=== PATIENT | female | born 1975 | race Caucasian/White ===

== ENCOUNTER 2017-06-03 09:36 | Emergency (ER) | payer BC ==
[2017-06-03] MEDS ORDERED: methylPREDNISolone 125 MG* 2 ML VIAL IV ONE (12:34)
[2017-06-03] MEDS ORDERED: Ketorolac INJ* 30 MG/ML 1 ML VIAL IV PUSH PRN (12:34)
[2017-06-03] MEDS ORDERED: Diazepam SYRINGE* 5 MG/ML 2 ML SYRINGE (10 MG total) IV ONE ×2 (12:34→15:18)
[2017-06-03] MEDS ORDERED: Ketorolac INJ* 30 MG/ML 1 ML VIAL IV PUSH ONE (12:39)
[2017-06-03 13:35] LABS: ABS Basophils 0 10^3/ul (0-0.2); ABS Eosinophils 0 10^3/ul (0-0.6); ABS Lymphocytes 1.2 10^3/ul (1.0-4.8); ABS Monocytes 0.3 10^3/ul (0-0.8); ABS Neutrophils 6.1 10^3/ul (1.5-7.7); ABS Nucleated RBC 0 10^3/ul; Eosinophil % 0 % (0-6); Hematocrit 43 % (35-47); Hemoglobin 14.8 g/dl (12.0-16.0); Lymphocyte % 15.7 % (25-47); Mean Corpuscular HGB Conc 35 g/dl (31-36); Mean Corpuscular Hemoglobin 30 pg (27-31); Mean Corpuscular Volume 86 fL (80-97); Mean Platelet Volume 9 um3 (7.4-10.4); Nucleated Red Blood Cells % 0.2; Platelet Count 251 10^3/ul (150-450); Red Blood Count 4.98 10^6/ul (4.0-5.4); Red Cell Distribution Width 14 % (10.5-15); White Blood Count 7.5 10^3/ul (3.5-10.8)
[2017-06-03 13:50] LABS: EGFR Non-African American 99.2 (>60)
--- NOTE | 2017-06-03 13:59 | RAD ---
HISTORY: Right-sided radicular pain COMPARISONS: MRI dated August 26, 2008 TECHNIQUE: Multiple contiguous axial CT scans were obtained of the lumbar spine without intravenous contrast, with coronal and sagittal multiplanar reformations. FINDINGS: SPINAL CANAL: Evaluation of the central canal is limited on CT technique; however, there is no obvious canalicular mass or epidural hemorrhage. ALIGNMENT: The alignment is normal. VERTEBRAL BODIES: There are sclerotic reactive endplate changes with anterolateral marginal osteophyte formation at L5-S1 JOINTS: There is facet osteoarthritis along the lower lumbar spine MUSCULATURE: Unremarkable INTERVERTEBRAL DISCS: There is diffuse loss of intervertebral disc height throughout the spine, most pronounced at L5-S1. AXIAL IMAGES: T12-L1: There is no osseous neural foraminal narrowing or central canal stenosis. L1-L2: There is no osseous neural foraminal narrowing or central canal stenosis. L2-L3: There is no osseous neural foraminal narrowing or central canal stenosis. L3-L4: There is bilateral facet hypertrophy. There is a mild disc bulge. There is no osseous neural foraminal area or central canal stenosis. L4-L5: There is a broad-based disc bulge. There is bilateral facet hypertrophy. There is mild bilateral neural foraminal narrowing. There is mild narrowing of the central canal. L5-S1: There is bilateral facet hypertrophy with marginal osteophyte formation at the neural foramina bilaterally. There is moderate bilateral neural foraminal narrowing. There is no significant osseous central canal stenosis. SOFT TISSUES: The visualized soft tissues of the abdomen are unremarkable. OTHER: None IMPRESSION: DEGENERATIVE DISC DISEASE AND OSTEOARTHRITIS MOST PRONOUNCED AT L3-L4, L4-L5, AND L5-S1. THERE IS MULTILEVEL NEURAL FORAMINAL NARROWING DESCRIBED ABOVE. THERE IS NO OSSEOUS CENTRAL CANAL STENOSIS.
[2017-06-03] MEDS ORDERED: Diazepam INJ (NF) 5 MG/ML 10 ML VIAL (50 MG TOTAL) IV ONE ×2 (14:00→15:45)
--- NOTE | 2017-06-03 14:16 | RAD ---
INDICATION: Atraumatic right hip pain. Remote history of labral tear. COMPARISON: CT lumbar spine same date TECHNIQUE: Noncontrast axial scans the pelvis were obtained with coronal and sagittal reconstructions FINDINGS: There are no acute abnormalities of the bony pelvis. Both hips articulate normally. The proximal femurs appear normal bilaterally. The SI joints and symphysis are intact. There is degenerative change at L5-S1 as described in separate report. The intraperitoneal soft tissue structures of the pelvis appear normal. The uterus appears normal. The bladder appears normal. The visualized bowel is unremarkable. There is a small amount of free fluid in the dependent portion of the pelvis. The extraperitoneal/superficial soft tissues of the visualized pelvis are normal. IMPRESSION: SMALL AMOUNT OF FREE FLUID. THIS MAY REPRESENT PHYSIOLOGIC FREE FLUID.
[2017-06-03] MEDS ORDERED: oxyCODONE/Acetamin 5/325 MG* TAB PO ONE ×4 (15:18→15:57)
--- NOTE | 2017-06-03 15:25 | ED ---
Back Pain - HPI Summary HPI Summary: Patient presents with acute right thigh burning radiating down into lateral calf and decreased sensation of toes on Rt foot. She admits to a history of rotated pelvis and degenerative disc disease which she's been managing with a chiropractor since her 20's. She admits to wearing stilt-like shoes which threw her back off a few weeks ago but has been working with her chiropractor and seemed to be getting better. Since then she admits to wearing small heel shoes the other day which may have also thrown her back off. This pain however in her Rt right thigh is new in that it's radiating down her leg. She reports she has pain in her buttock area where her hamstring inserts. She denies saddle paresthesia, incontinence of bowels or bladder. Simply has a lot of pain and reports she has a very good pain tolerance. She typically takes fish oil and magnesium daily. Takes ibuprofen occasionally but not routinely. Denies previous history of back, hip, or lower extremity surgeries however she had a bone graft taken from her left hip to repair a fractured scaphoid in her left wrist 5 years ago. This area of her hip remains to be sore from scar tissue but is not causing any additional issues with her back or hips. She has declined seeing neurosurgery in the past 10 years and requests most noninvasive approach as possible however she is open to taking any medications that may help her pain today as she is quite uncomfortable - worse w/ hip/leg movements, weight bearing. - History of Current Complaint Chief Complaint: EDExtremityLower Stated Complaint: BACK & RT LEG PAIN Time Seen by Provider: 06/03/17 11:50 Hx Obtained From: Patient, Family/Animal Nutrition Teacher - male partner, female friend Pain Intensity: 11 - Allergies/Home Medications Allergies/Adverse Reactions: Allergies Allergy/AdvReac Type Severity Reaction Status Date / Time MS Sulfa Antibiotics Allergy Hives Verified 07/22/15 12:15 [Sulfa Antibiotics] WHEAT AdvReac GI Upset Uncoded 07/22/15 12:15 PMH/Surg Hx/FS Hx/Imm Hx Previously Healthy: Yes Endocrine/Hematology History: Denies: Hx Diabetes Cardiovascular History: Denies: Hx Hypertension, Hx Pacemaker/ICD Respiratory History: Denies: Hx Asthma Musculoskeletal History: Reports: Hx Arthritis - DDD, Hx Back Problems - DDD, Other Musculoskeletal History - Rt hip labrum tear, "rotated pelvis" - follows w / chiropractor Denies: Hx Rheumatoid Arthritis, Hx Osteoporosis Sensory History: Denies: Hx Hearing Aid Psychiatric History: Denies: Hx Panic Disorder - Surgical History Surgery Procedure, Year, and Place: BILATERAL BUNIONECTOMY @ 16 y.o. ,LEFT WRIST SCAPHOID REPAIR WITH FIXATION Infectious Disease History: No Infectious Disease History: Denies: Traveled Outside the [place] in Last 30 Days - Family History Known Family History: Positive: Other - DDD mom, GM - Social History Occupation: Employed Full-time - actress Lives: With Family Alcohol Use: Rare Substance Use Type: Reports: Marijuana - tried this yesterday for pain - helped a little - no routine use Hx Tobacco Use: No Smoking Status (MU): Never Smoked Tobacco Review of Systems Constitutional: Negative Negative: Fever, Chills, Fatigue Cardiovascular: Negative Negative: Palpitations, Chest Pain Respiratory: Negative Negative: Shortness Of Breath Gastrointestinal: Negative Negative: Abdominal Pain, Vomiting, Diarrhea, Nausea Genitourinary: Negative Positive: Arthralgia, Myalgia, Decreased ROM Skin: Negative Positive: Paresthesia Psychological: Normal All Other Systems Reviewed And Are Negative: Yes Physical Exam Triage Information Reviewed: Yes Vital Signs On Initial Exam: Initial Vitals Temp Pulse Resp BP Pulse Ox 98.6 F 95 20 148/103 100 06/03/17 09:42 06/03/17 09:42 06/03/17 09:42 06/03/17 09:42 06/03/17 09:42 Vital Signs Reviewed: Yes Appearance: Positive: Well-Appearing, Well-Nourished, Pain Distress - comfortabe at rest however crying when tries to ambulate to bathroom - attempts with help of 2 friends Skin: Positive: Warm, Skin Color Reflects Adequate Perfusion, Dry Head/Face: Positive: Normal Head/Face Inspection Eyes: Positive: Normal, EOMI ENT: Positive: Normal ENT inspection, Hearing grossly normal, Pharynx normal - mucosa moist Neck: Positive: Supple, Nontender Respiratory/Lung Sounds: Positive: Breath Sounds Present Cardiovascular: Positive: Normal, Pulses are Symmetrical in both Upper and Lower Extremities. Negative: Leg Edema Left, Leg Edema Right Abdomen Description: Positive: Nontender, Soft Bowel Sounds: Positive: Present Musculoskeletal: Positive: Strength/ROM Intact - pain w/ Rt LE movement but is able to move Neurological: Positive: Alert, Oriented to Person Place, Time, CN Intact II- III. Negative: Sensory/Motor Intact - decreased sensation along Rt 5th toe and lateral calf when compared to Lt LE - motor intact and equal B/L - no weakness appreciated Psychiatric: Positive: Normal - concerned/frustrated but calm, cooperative Diagnostics - Vital Signs Vital Signs Temp Pulse Resp BP Pulse Ox 06/03/17 13:46 20 06/03/17 09:42 98.6 F 95 20 148/103 100 - Laboratory Lab Results: Lab Results 06/03/17 06/03/17 06/03/17 Range/Units 13:17 13:17 13:17 WBC 7.5 (3.5-10.8) 10^3/ul RBC 4.98 (4.0-5.4) 10^6/ul Hgb 14.8 (12.0-16.0) g/dl Hct 43 (35-47) % MCV 86 (80-97) fL MCH 30 (27-31) pg MCHC 35 (31-36) g/dl RDW 14 (10.5-15) % Plt Count 251 (150-450) 10^3/ul MPV 9 (7.4-10.4) um3 Neut % (Auto) 80.4 (38-83) % Lymph % (Auto) 15.7 L (25-47) % [place] % (Auto) 3.7 (1-9) % Eos % (Auto) 0 (0-6) % Baso % (Auto) 0.2 (0-2) % Absolute Neuts (auto) 6.1 (1.5-7.7) 10^3/ul Absolute Lymphs (auto) 1.2 (1.0-4.8) 10^3/ul Absolute Monos (auto) 0.3 (0-0.8) 10^3/ul Absolute Eos (auto) 0 (0-0.6) 10^3/ul Absolute Basos (auto) 0 (0-0.2) 10^3/ul Absolute Nucleated RBC 0 10^3/ul Nucleated RBC % 0.2 Sodium 137 (133-145) mmol/L Potassium 3.7 (3.5-5.0) mmol/L Chloride 103 (101-111) mmol/L Carbon Dioxide 25 (22-32) mmol/L Anion Gap 9 (2-11) mmol/L BUN 12 (6-24) mg/dL Creatinine 0.66 (0.51-0.95) mg/dL Est GFR ( Amer) 127.6 (>60) Est GFR (Non-Af Amer) 99.2 (>60) BUN/Creatinine Ratio 18.2 (8-20) Glucose 97 (70-100) mg/dL Lactic Acid 1.2 (0.5-2.0) mmol/L Calcium 9.2 (8.6-10.3) mg/dL Total Bilirubin 0.70 (0.2-1.0) mg/dL AST 20 (13-39) U/L ALT 26 (7-52) U/L Alkaline Phosphatase 36 (34-104) U/L C-Reactive Protein < 1.00 (< 5.00) mg/L Total Protein 7.2 (6.4-8.9) g/dL Albumin 4.4 (3.2-5.2) g/dL Globulin 2.8 (2-4) g/dL Albumin/Globulin Ratio 1.6 (1-3) Result Diagrams: 06/03/17 13:17 06/03/17 13:17 Lab Statement: Any lab studies that have been ordered have been reviewed, and results considered in the medical decision making process. Re-Evaluation - Re-Evaluation First Eval Change: Improved - diazepam helped her muscles relax a little in her RT thigh but this was short lived and pain is still present and she does not want to try to move from position of Lt side lying w/ pillow between knees; no change in paresthesia and no new weakness Second Eval Change: Improved - pain still present but much more tolerable - she is able to sit up easier w/o acute pain spiking - would like to try to go home w PO meds Back Pain Course/Dx - Course Course Of Treatment: Patient here with acute on chronic lower back pain and new right thigh burning and pain. This also presents as pain near her buttock and hamstring overlap along with numbness in her toes on this leg. She has never experienced radicular symptoms before and tried to get treatment through her chiropractor yesterday however pain continues. She has a history of "rotated pelvis" and degenerative disc disease since her 20s. She manages this with conservative care and rarely takes ibuprofen for pain however today reports she' ll take anything to make the pain.. She was initially trialed on a course of Solu-Medrol, Toradol and Valium. She reports this helped her symptoms somewhat however pain was still quite high. Her CT report did reveal degenerative disc disease and disc bulging at the L4-L5 and L5-S1 levels without central canal narrowing. Her pelvic CT did not reveal acute pathology of her hip or any masses that could be pressing into nerves in these areas. Furthermore she was given oral doses of Percocet and Valium. Upon recheck, patient reports her pain is much more tolerable, she considered up without as much pain as she was having before, and would like to try to go home. Discussed appropriate follow- up care through PCP and that MRI may be appropriate for her outpatient. Reviewed danger signs and symptoms with her and her who agree to return to the emergency department if they present. Conversation was had that if patient's pain was intolerable or she felt she could not ambulate, admission to the hospital could be an option. Again patient requests to go home. NOTE: Her labs were reviewed and are unremarkable for acute pathology. - Diagnoses Provider Diagnoses: DDD (degenerative disc disease), lumbar, Lumbar disc herniation, Right lumbar radiculopathy Discharge - Discharge Plan Condition: Stable Disposition: HOME Prescriptions: Diazepam TAB(*) [Valium TAB(*)] 5 mg PO Q6H PRN #20 tab MDD 4 PRN Reason: Pain Ibuprofen TAB* [Motrin TAB* 800 MG] 800 mg PO Q8HR #20 tab oxyCODONE/Acetamin 5/325 MG* [Percocet 5/325 TAB*] 2 tab PO Q6H PRN #24 tab MDD 8 PRN Reason: Pain predniSONE TAB* [Deltasone TAB*] 60 mg PO DAILY #12 tab Patient Education Materials: Degenerative Disc Disease (ED), Lumbar Disc Herniation (ED), Muscle Spasm (ED), Lumbar Radiculopathy (ED) Forms: *Work Release Referrals: Betsy Vaughn MD [Primary Care Provider] - Additional Instructions: You appear to be having an acute flareup of your degenerative disc disease. 2 herniated disks in lower lumbar spine were identified on your CT scan today - it is suspected these are the cause of your radicular pain and paresthesia symptoms in your Right lower extremity. You seem to have had some relief with medications provided here today. It is encouraged that you continue to use these as directed - the prednisone until complete and the IBUPROFEN around the clock and other pain meds as needed until symptoms reduce. Follow-up with her primary care doctor on Tuesday or Tuesday. Call Tuesday to schedule an appointment. You may benefit from an MRI for more detailed information of your pathology. *If you develop numbness tingling weakness change in bowel or bladder habits, please return to the emergency department.
[2017-06-03] MEDS ORDERED: Diazepam TAB(*) 5 MG PO ONE (15:48)
[2017-06-03] MEDS ORDERED: oxyCODONE/Acetamin 5/325 MG* TAB ONE (15:54)
[2017-06-03 18:33] VITALS: BP 98/53
== END 2017-06-03 18:31 | disposition home or self-care (01) ==
LOC: ED 09:36
DX: M51.36 Other intervertebral disc degeneration, lumbar region (principal); M54.16 Radiculopathy, lumbar region; Z88.2 Allergy status to sulfonamides
CPT/HCPCS: 36415; 72131; 72192; 80053; 83605; 85025; 86140; 96374; 96375; 96376; 99282; A9270-GY; J1885; J2930; J3360

== ENCOUNTER 2017-06-17 10:43 | Observation (INO) | payer BC ==
[~2017-06-17 10:43] MED LIST: Bacitracin IV* 50,000 UNITS INJ ONE; Buffered Lidocaine 0.9% SYRIN* 5 ML/SYR SYRINGE INTRADERM ONE; Buffered Lidocaine 0.9% SYRIN* 5 ML/SYR SYRINGE ONE; Dexamethasone IV* 4 MG/ML 1 ML (4 MG) IV SLOW PU ONE; Dexamethasone IV* 4 MG/ML 1 ML (4 MG) ONE; Famotidine IV* 10 MG/ML 2 ML (20 mg) IV ONE; Famotidine IV* 10 MG/ML 2 ML (20 mg) ONE; Lidocaine 1% MPF wEPI 200,000* 30 ML SDV ONE; Lidocaine 2% PF * 5 ML VIAL ONE; Midazolam* 1 MG/ML 2 ML VIAL (2 MG) ONE; Mivacurium Chloride* 20 MG/10 ML VIAL IV ONE; Propofol* 10 MG/ML 20 ML BTL IV PUSH ONE; Thrombin 5,000 UNITS* 1 APPLIC KIT - topical use - TOPICAL ONE; ceFAZolin 2 GM in 100 MLS NS (*) BAG IVPB ONE; fentaNYL* 50 MCG/ML 2 ML VIAL (100 MCG VIAL) ONE
[2017-06-17] MEDS ORDERED: Naloxone* 0.4 MG/ML 1 ML VIAL IV PRN (10:50)
[2017-06-17] MEDS ORDERED: DiMENhydriNATE IV* 50 MG/ML VIAL IV PUSH PRN (10:50)
[2017-06-17] MEDS ORDERED: oxyCODONE/Acetamin 5/325 MG* TAB PO PRN (10:50)
[2017-06-17] MEDS ORDERED: HYDROcodone/ACETAMIN 5-325 MG* 1 TAB PO PRN (10:50)
[2017-06-17] MEDS ORDERED: PROCHLORPERAZINE INJ 5 MG/ML 2 ML VIAL IV PRN (10:50)
[2017-06-17] MEDS ORDERED: Ondansetron INJ* 2 MG/ML VIAL ONE (12:32)
[2017-06-17] MEDS ORDERED: Zolpidem TAB* 10 MG PO PRN (12:53)
[2017-06-17] MEDS ORDERED: Ondansetron INJ* 2 MG/ML VIAL IV PRN (12:53)
[2017-06-17] MEDS ORDERED: Magnesium Hydroxide LIQ* 30 ML UDC PO PRN (12:53)
[2017-06-17] MEDS ORDERED: fentaNYL* 50 MCG/ML 2 ML VIAL (100 MCG VIAL) ONE (13:40)
[2017-06-17] MEDS ORDERED: oxyCODONE/Acetamin 5/325 MG* TAB ONE (13:40)
[2017-06-17] MEDS: fentaNYL* 50 MCG/ML 2 ML VIAL (100 MCG VIAL) IV PRN ×2 (13:41→13:46)
--- NOTE | 2017-06-17 14:13 | RAD ---
INDICATION: Right lumbar discectomy L4-L5. COMPARISON: Comparison is made with a prior MRI of the lumbar spine from June 15, 2017. TECHNIQUE: A single crosstable lateral film of the lumbar spine was obtained in the operating room. FINDINGS: There are several surgical instruments which project posteriorly at the L4-L5 and L5-S1 levels. There is a localization instrument which projects posterior at the level of the L4-L5 disc. IMPRESSION: INTRAOPERATIVE CONTROL FILMS.
[2017-06-17] MEDS: HYDROcodone/ACETAMIN 5-325 MG* 1 TAB PO PRN ×2 (17:19→21:21)
[2017-06-17] MEDS: Acetaminophen TAB* 325 MG PO PRN ×2 (17:19→22:54)
[2017-06-18] MEDS: HYDROcodone/ACETAMIN 5-325 MG* 1 TAB PO PRN ×2 (03:33→07:50)
[2017-06-18] MEDS: Acetaminophen TAB* 325 MG PO PRN (07:52)
[2017-06-18 08:15] VITALS: BP 111/68
--- NOTE | 2017-06-18 08:53 | PN ---
Progress Note - Progress Note Date of Service: 06/18/17 SOAP: Subjective: [] POD # 1 Doing well Movement in foor better C/O some recurrent leg pain Objective: []Moderate foot weakness persists Dressing intact Assessment: []Satis post op course Plan: []D/C today D/C Instructions given
== END 2017-06-18 10:30 | disposition home or self-care (01) ==
LOC: OR 10:43 → SSU 14:54
PROVIDERS: ADMIT Neurological Surgery; ATTEND Neurological Surgery
DX: M47.26 Other spondylosis with radiculopathy, lumbar region (principal); M54.5 Low back pain; M51.36 Other intervertebral disc degeneration, lumbar region
CPT/HCPCS: 72100; 81025; 94760; 96374; 96375; A9270-GY; G0378; J1100; J2001; J2250; J2405; J2704; J3010